=== PATIENT | female | born 1985 | race Caucasian/White ===

== ENCOUNTER 2019-07-04 20:17 | Emergency (ER) | payer SELFPAY ==
[~2019-07-04] VITALS: Ht 165.1 cm; Wt 102.3 kg
[~2019-07-04 20:17] MED LIST: CEPHALEXIN500 M1 PO; CLARITIN 1010 MG/TAB PO; COLACE 100100 MG/CAP; GLUCOPHAGE500 MG/TAB PO; LORTAB 5/500 501 TAB PO; MACROBID 1100 MG/CAP PO; MIRALAX PA17 GM/Dose PO; MOTRIN 600600 MG/TAB PO; PERCOCET 325 MG1 TA2 PO; PRENATAL1 TAB; ZESTRIL 10MG10 MG PO; ZOFRAN ODT4 MG PO
[2019-07-04 20:24] VITALS: BP 133/92; TEMP 97.7
[2019-07-04] MEDS ORDERED: PREDNISONE20 MG PO (21:15)
[2019-07-04 21:42] VITALS: PULSE 81
== END 2019-07-04 21:42 | disposition home or self-care (01) ==
LOC: COL.ER 20:17
DX: L50.9 Urticaria, unspecified (principal); Z90.89 Acquired absence of other organs; Z98.890 Other specified postprocedural states
CPT/HCPCS: J1100; J1200